=== PATIENT | female | born 1970 | race Caucasian/White ===

== ENCOUNTER → 2019-08-05 | Emergency (ER) | payer MEDICAID ==
[~2019-08-05] VITALS: Ht 167.6 cm; Wt 93.0 kg
[~2019-08-05] MED LIST: BACITRACIN 15GM TUBE TOP SCH; BACITRACIN ZINC OINT UDPKT TOP ONE; KETOROLAC 30MG/ML VIAL IV STA; MORPHINE SULFATE 4 MG/ML CPJ (NOT FOR IM USE) IV STA; ONDANSETRON HCL 4MG/2ML INJ IV STA; SODIUM CHLORIDE 0.9% 1,000 ML IV ONE
[2019-08-05 14:28] VITALS: BP 121/84
== END | disposition home or self-care (01) ==
LOC: ER 11:10
DX: S93.401A Sprain of unspecified ligament of right ankle, initial encounter (principal); S93.601A Unspecified sprain of right foot, initial encounter; S80.212A Abrasion, left knee, initial encounter; M25.552 Pain in left hip; Z98.890 Other specified postprocedural states; W18.31XA Fall on same level due to stepping on an object, initial encounter; Y93.89 Activity, other specified; Y92.89 Other specified places as the place of occurrence of the external cause; Y99.8 Other external cause status
CPT/HCPCS: 73502; 73562; 73610; 73630; 96374; 96375; 99283; A4217; J1885; J2270; J2405; J7030; Z7610